=== PATIENT | female | born 1950 | race Caucasian/White ===

== ENCOUNTER 2020-05-25 15:36 | Emergency (ER) | payer OTHER ==
[~2020-05-25] VITALS: Ht 160 cm; Wt 65.8 kg
[~2020-05-25 15:36] MED LIST: ABILIFY 5 MG TAB5 M1 PO; AUGMENTIN 875-1 EACH PO; CEFTIN500 MG PO; CYMBALTA60 MG PO; DOXYCYCLINE 10100 M2 PO; HYDROCHLOROTHIA25 M1 PO; HYDROCODONE-AC120 ML PO; LANTUS SUBQ; LISINOPRIL40 MG PO; MILLIPRED DP5 M1 PO; NOVOLOG100 UNIT/1 SQ
[2020-05-25 17:29] LABS: ABSOLUTE NEUTROPHILS 6.8 thou/uL (1.4-8.2); BASOPHILS 0.9 % (0.0-2.0); EOSINOPHILS 3.1 % (0.0-3.0); HEMATOCRIT 33.5 % (37.0-47.0); HEMOGLOBIN 11.7 gm/dL (12.0-15.0); LYMPHOCYTES 28.4 % (24.0-44.0); MCH 30.3 pg (26.0-34.0); MCHC 34.8 g/dL (28.0-37.0); MCV 86.9 fL (80.0-100.0); MONOCYTES 8.7 % (1.0-8.0); PLATELET COUNT 427 thou/uL (150-400); POLYS 58.9 % (36.0-66.0); RBC 3.86 mil/uL (4.20-5.00); WBC 11.6 thou/uL (4.0-11.0)
[2020-05-25 17:40] LABS: POTASSIUM 3.7 mmol/L (3.5-5.1)
[2020-05-25 17:48] LABS: ALBUMIN 3.8 g/dL (3.4-5.0); TOTAL BILIRUBIN 0.4 mg/dL (0.2-1.0); TOTAL PROTEIN 7.2 g/dL (6.4-8.2)
[2020-05-25 19:14] LABS: URINE CLARITY CLEAR; URINE COLOR YELLOW; URINE PROTEIN (DIPSTICK) TRACE (Negative); URINE SPECIFIC GRAVITY 1.005 (1.005-1.035)
[2020-05-25 19:15] LABS: URINE BILIRUBIN NEGATIVE (Negative); URINE BLOOD NEGATIVE (Negative); URINE GLUCOSE-RANDOM* NEGATIVE (Negative); URINE KETONES NEGATIVE (Negative); URINE LEUKOCYTES-REFLEX 2+ (Negative); URINE NITRITE-REFLEX NEGATIVE (Negative); URINE UROBILINOGEN 0.2 E.U./dl (0.2-1.0)
[2020-05-25 19:30] LABS: CASTS None Seen /LPF (None Seen); CRYSTALS None Seen /LPF (None Seen); SQUAMOUS >10 Many /LPF (0-3); URINE RBC 0-2 Rare /HPF (0-2); URINE WBC-REFLEX 0-5 Rare /HPF (0-5)
[2020-05-25] MEDS ORDERED: LEVSIN-SL0.125 MG BUCCAL (20:50)
[2020-05-25] MEDS ORDERED: CEPHALEXIN500 MG PO (20:50)
[2020-05-25] MEDS ORDERED: DIFLUCAN150 M1 PO (20:58)
[2020-05-25 21:05] VITALS: BP 150/93
== END 2020-05-25 21:05 | disposition home or self-care (01) ==
LOC: ER 15:36
PROVIDERS: Nurse Practitioner Family
DX: N39.0 Urinary tract infection, site not specified (principal); R19.7 Diarrhea, unspecified; R10.32 Left lower quadrant pain; I10 Essential (primary) hypertension; E11.9 Type 2 diabetes mellitus without complications; F17.210 Nicotine dependence, cigarettes, uncomplicated; Z88.1 Allergy status to other antibiotic agents; Z88.0 Allergy status to penicillin; Z88.2 Allergy status to sulfonamides; Z79.899 Other long term (current) drug therapy

== ENCOUNTER 2020-07-04 18:02 | Emergency (ER) | payer OTHER ==
[~2020-07-04] VITALS: Ht 160 cm; Wt 63.5 kg
[~2020-07-04 18:02] MED LIST changes: +CEPHALEXIN500 MG PO; +DIFLUCAN150 M1 PO; +LEVSIN-SL0.125 MG BUCCAL
[2020-07-04 18:46] LABS: ABSOLUTE NEUTROPHILS 8.6 thou/uL (1.4-8.2); BASOPHILS 0.8 % (0.0-2.0); EOSINOPHILS 3.4 % (0.0-3.0); HEMATOCRIT 29.5 % (37.0-47.0); HEMOGLOBIN 9.9 gm/dL (12.0-15.0); LYMPHOCYTES 21.9 % (24.0-44.0); MCH 30.1 pg (26.0-34.0); MCHC 33.6 g/dL (28.0-37.0); MCV 89.6 fL (80.0-100.0); MONOCYTES 8.8 % (1.0-8.0); PLATELET COUNT 369 thou/uL (150-400); POLYS 65.1 % (36.0-66.0); RBC 3.29 mil/uL (4.20-5.00); RDW 14.9 % (10.5-14.5); WBC 13.1 thou/uL (4.0-11.0)
[2020-07-04 19:08] LABS: ANION GAP 11 mmol/L (7-16); BUN 21 mg/dL (7-18); CALCIUM 8.7 mg/dL (8.5-10.1); CHLORIDE 106 mmol/L (98-107); CO2 22 mmol/L (21-32); CREATININE 0.8 mg/dL (0.6-1.0); GLUCOSE 110 mg/dL (74-106); SODIUM 139 mmol/L (136-145)
[2020-07-04 19:09] LABS: POTASSIUM 4.7 mmol/L (3.5-5.1)
[2020-07-04 19:19] LABS: ALBUMIN 3.1 g/dL (3.4-5.0); LIPASE 55 U/L (73-393); SGOT 26 U/L (15-37); SGPT 14 U/L (14-59); TOTAL BILIRUBIN 0.3 mg/dL (0.2-1.0); TOTAL PROTEIN 6.1 g/dL (6.4-8.2); TROPONIN-I <0.06 ng/mL (<0.06)
[2020-07-04 19:45] LABS: URINE BILIRUBIN NEGATIVE (Negative); URINE BLOOD NEGATIVE (Negative); URINE CLARITY CLEAR; URINE COLOR YELLOW; URINE GLUCOSE-RANDOM* NEGATIVE (Negative); URINE KETONES NEGATIVE (Negative); URINE LEUKOCYTES-REFLEX NEGATIVE (Negative); URINE NITRITE-REFLEX NEGATIVE (Negative); URINE PROTEIN (DIPSTICK) NEGATIVE (Negative); URINE SPECIFIC GRAVITY 1.015 (1.005-1.035); URINE UROBILINOGEN 0.2 E.U./dl (0.2-1.0)
[2020-07-04 20:36] VITALS: BP 145/69
--- NOTE | 2020-07-05 13:10 | EKG ---
[address] [address] ELECTROCARDIOGRAM REPORT Name: BECKYFADUMODANK CERNA [id number] Admission: 07/04/20 Attend Phys: Discharge: 07/04/20 Date of : 54 Report #: [id number] [facility] ED Test Date: 2020-07-04 Test Time: 18:25:57 Pat Name: FADUMO PENA Department: Room: Gender: F Material Expediter: KF : 1950 Requested By: Veronika Toscano Order Number: [id number] MD: Adria Franco Measurements Intervals [place] Rate: 65 P: 39 MT: 165 QRS: 40 QRSD: 108 T: 4 QT: 400 QTc: 416 Interpretive Statements Sinus rhythm No previous ECG available for comparison Electronically Signed On 07-05-2020 13:10:31 CDT by Adria Franco [email or web address] <ELECTRONICALLY SIGNED> By: Adria Franco MD 07/05/20 1310 1825 1825 Adria Franco MD /EPI
== END 2020-07-04 20:36 | disposition home or self-care (01) ==
LOC: ER 18:02
PROVIDERS: Emergency Medicine
DX: S80.01XA Contusion of right knee, initial encounter (principal); R55 Syncope and collapse; M54.5 Low back pain; I10 Essential (primary) hypertension; E11.9 Type 2 diabetes mellitus without complications; I25.10 Atherosclerotic heart disease of native coronary artery without angina pectoris; F17.210 Nicotine dependence, cigarettes, uncomplicated; Z88.1 Allergy status to other antibiotic agents; Z88.0 Allergy status to penicillin; Z88.2 Allergy status to sulfonamides; Z79.899 Other long term (current) drug therapy; W18.30XA Fall on same level, unspecified, initial encounter; Y93.89 Activity, other specified; Y92.89 Other specified places as the place of occurrence of the external cause; Y99.9 Unspecified external cause status